=== PATIENT | male | born 2000 | race Two or more races ===

== ENCOUNTER 2021-12-10 08:26 | Emergency (ER) | payer OTHER ==
[~2021-12-10] VITALS: Ht 180.3 cm; Wt 77.1 kg
== END 2021-12-10 08:45 | disposition home or self-care (01) ==
LOC: ER 08:45
DX: Z48.02 Encounter for removal of sutures (principal)
CPT/HCPCS: 99282; S0630

== ENCOUNTER 2022-11-13 19:45 | Emergency (ER) | payer OTHER ==
[~2022-11-13] VITALS: Ht 180.3 cm; Wt 68.0 kg
[2022-11-13] MEDS ORDERED: IBUPROFEN800 MG PO (20:08)
[2022-11-13] MEDS ORDERED: BENZONATATE100 MG PO (20:08)
[2022-11-13] MEDS ORDERED: FLONASE ALLERG9.9 ML INH (20:08)
[2022-11-13] MEDS ORDERED: MUCINEX DM ER1 EACH PO (20:08)
[2022-11-13] MEDS ORDERED: CLARITIN-D 241 EACH PO (20:13)
== END 2022-11-13 20:28 | disposition home or self-care (01) ==
LOC: ER 19:57
DX: R50.9 Fever, unspecified (principal); U07.1 COVID-19; R05.9 Cough, unspecified; F32.A Depression, unspecified; F17.210 Nicotine dependence, cigarettes, uncomplicated
CPT/HCPCS: 99282